=== PATIENT | female | born 1955 | race Caucasian/White ===

== ENCOUNTER 2017-07-28 04:32 | Inpatient (IN) | payer OTHER ==
[~2017-07-28] VITALS: Ht 167.6 cm; Wt 77.3 kg
[2017-07-28 05:16] LABS: INTER. NORMALIZED RATIO 1.6
[2017-07-28 05:19] LABS: PTT 27.4 SEC (25-37)
[2017-07-28 05:25] LABS: CHLORIDE 104 mEq/L (99-109); SODIUM 140 mEq/L (136-147)
[2017-07-28 05:27] LABS: GLUCOSE 105 mg/dL (70-99)
[2017-07-28 05:31] LABS: CREATININE 0.8 mg/dL (0.6-1.3); GFR ESTIMATE (CALCULATED) > 59 mL/min/
[2017-07-28 05:32] LABS: UREA NITROGEN (BUN) 9 mg/dL (9-23)
[2017-07-28 05:34] LABS: HEMATOCRIT 37.6 % (36.0-46.0); HEMOGLOBIN 12.9 G/DL (11.9-15.5); MCH 31.4 PG (29.0-34.0); MCHC 34.3 G/DL (30.0-36.0); MCV 91.5 FL (83-99); PLATELET COUNT 252 K/uL (156-360); RBC DIS.WIDTH-CV 12.8 % (11.8-14.6); RBC DIS.WIDTH-SD 43.1 % (39-53); RED BLOOD COUNT 4.11 M/uL (3.80-5.20); WHITE BLOOD COUNT 6.6 K/uL (4.1-10.2)
[2017-07-28 06:27] LABS: TROP-I INTERPRETATION NEGATIVE; TROPONIN-I < 0.01 ng/mL (0.0-0.30)
[2017-07-28] MEDS ORDERED: XARELTO15 MG PO (07:59)
[2017-07-28] MEDS ORDERED: LIPITOR10 MG PO (07:59)
[2017-07-28] MEDS ORDERED: ENDOCET 5-3251 EACH PO (07:59)
[2017-07-28] MEDS ORDERED: LYRICA50 MG PO (08:00)
[2017-07-28] MEDS ORDERED: LOW DOSE ASPIRI81 M1 PO (08:00)
[2017-07-28 13:13] LABS: INTER. NORMALIZED RATIO 1.3
[2017-07-28 13:19] LABS: PTT 73.5 SEC (25-37)
[2017-07-28 13:24] LABS: TROP-I INTERPRETATION NEGATIVE; TROPONIN-I < 0.01 ng/mL (0.0-0.30)
[2017-07-28 17:31] LABS: INTER. NORMALIZED RATIO 1.3
[2017-07-28 17:33] LABS: PTT 78.4 SEC (25-37)
[2017-07-28 19:57] LABS: TROP-I INTERPRETATION NEGATIVE; TROPONIN-I < 0.01 ng/mL (0.0-0.30)
[2017-07-28 20:31] VITALS: BP 123/65
[2017-07-28 23:10] VITALS: BP 122/56
[2017-07-29 03:35] VITALS: BP 116/66
[2017-07-29 06:44] LABS: CHLORIDE 108 MEQ/L (99-109); CREATININE 0.8 MG/DL (0.6-1.3); GFR ESTIMATE (CALCULATED) > 59 mL/min/; GLUCOSE 88 mg/dL (70-99); POTASSIUM 4.4 MEQ/L (3.7-5.4); SODIUM 141 MEQ/L (136-147); UREA NITROGEN (BUN) 8 mg/dL (9-23)
[2017-07-29 08:03] VITALS: BP 121/58
[2017-07-29 10:55] VITALS: BP 118/78
[2017-07-29 15:49] VITALS: BP 119/61
[2017-07-29 21:24] LABS: INTER. NORMALIZED RATIO 1.2
[2017-07-29 21:27] LABS: PTT 77.1 SEC (25-37)
[2017-07-30 00:17] VITALS: BP 119/61
[2017-07-30 06:52] LABS: HEMATOCRIT 34.9 % (36.0-46.0); HEMOGLOBIN 11.4 G/DL (11.9-15.5); MCH 30.2 PG (29.0-34.0); MCHC 32.7 G/DL (30.0-36.0); MCV 92.3 FL (83-99); PLATELET COUNT 316 K/uL (156-360); RBC DIS.WIDTH-SD 43.6 % (39-53); RED BLOOD COUNT 3.78 M/uL (3.80-5.20); WHITE BLOOD COUNT 4.7 K/uL (4.1-10.2)
[2017-07-30 07:02] VITALS: BP 109/63
[2017-07-30] MEDS ORDERED: ELIQUIS5 MG PO (13:09)
[2017-07-30] MEDS ORDERED: ENDOCET 5-3251 EACH PO (13:09)
== END 2017-07-30 15:06 | disposition home or self-care (01) | DRG 176 ==
LOC: EME 04:32 → 2EAST 07:54 → EDOF 07:54 → ENRESERV 07:58 → 2EAST 19:40
PROVIDERS: Emergency Medicine; Internal Medicine; Student in an Organized Health Care Education/Training Program
DX: I26.99 Other pulmonary embolism without acute cor pulmonale (principal); D68.51 Activated protein C resistance; Z86.718 Personal history of other venous thrombosis and embolism; G50.0 Trigeminal neuralgia; G62.9 Polyneuropathy, unspecified; H54.62 Unqualified visual loss, left eye, normal vision right eye; Z79.01 Long term (current) use of anticoagulants; Z87.442 Personal history of urinary calculi
CPT/HCPCS: 71275; 80048; 84484; 85027; 85610; 85730; 93005; 93306; 93970; 99281; 99285; J2270; J3010; J7030

== ENCOUNTER → 2018-03-02 | Outpatient (CLI) | payer OTHER ==
[~2018-03-02] VITALS: Ht 167.6 cm; Wt 77.1 kg
[~2018-03-02] MED LIST: ELIQUIS5 MG PO; ENDOCET 5-3251 EACH PO; LIPITOR10 MG PO; LOW DOSE ASPIRI81 M1 PO; LYRICA50 MG PO; XARELTO15 MG PO
== END | disposition home or self-care (01) ==
LOC: AMB 13:57
PROC: 0DBP8ZZ Excision of Rectum, Via Natural or Artificial Opening Endoscopic (ICD-10-PCS; principal; 2018-03-02)
PROC: 0D5Q7ZZ Destruction of Anus, Via Natural or Artificial Opening (ICD-10-PCS; principal; 2018-03-02)
DX: K62.0 Anal polyp (principal); K62.1 Rectal polyp; K57.30 Diverticulosis of large intestine without perforation or abscess without bleeding
CPT/HCPCS: J2250